=== PATIENT | male | born 1935 | race Hispanic/Latino ===

== ENCOUNTER → 2018-04-16 | Outpatient (CLI) | payer OTHER ==
[~2018-04-16] MED LIST: REGADENOSON 0.4 MG/5 ML PF SYG IVP ONE; REGADENOSON 0.4 MG/5 ML PF SYG IVP SCH
== END | disposition home or self-care (01) ==
LOC: SHCH 08:03
PROVIDERS: ATTEND Internal Medicine Cardiovascular Disease
DX: I99.8 Other disorder of circulatory system (principal)
CPT/HCPCS: 78452; 93017; 96374; A9500 ×2; J2785

== ENCOUNTER → 2018-04-19 | Outpatient (CLI) | payer OTHER | END | disposition home or self-care (01) | LOC: RAH 09:41 | PROVIDERS: ATTEND Family Medicine | DX: I51.7 Cardiomegaly (principal); I20.9 Angina pectoris, unspecified | CPT/HCPCS: 93306 ==

== ENCOUNTER → 2018-12-16 | Outpatient (CLI) | payer OTHER | END | disposition home or self-care (01) | LOC: RAH 10:46 | PROVIDERS: ATTEND Family Medicine | DX: N44.2 Benign cyst of testis (principal); K40.90 Unilateral inguinal hernia, without obstruction or gangrene, not specified as recurrent | CPT/HCPCS: 76870 ==

== ENCOUNTER → 2019-01-30 | Outpatient (CLI) | payer OTHER | END | disposition home or self-care (01) | LOC: OIH 16:21 | PROVIDERS: ATTEND Family Medicine | DX: Z01.818 Encounter for other preprocedural examination (principal); I10 Essential (primary) hypertension | CPT/HCPCS: 71046 ==

== ENCOUNTER → 2019-07-28 | Outpatient (CLI) | payer OTHER | END | disposition home or self-care (01) | LOC: RAH 07:23 | PROVIDERS: ATTEND Surgery | DX: K57.30 Diverticulosis of large intestine without perforation or abscess without bleeding (principal); Z98.890 Other specified postprocedural states | CPT/HCPCS: 74176 ==

== ENCOUNTER → 2020-02-25 | Outpatient (CLI) | payer OTHER | END | disposition home or self-care (01) | LOC: RAH 12:37 | PROVIDERS: ATTEND Family Medicine | DX: R06.02 Shortness of breath (principal) | CPT/HCPCS: 71046 ==

== ENCOUNTER 2020-05-04 06:25 | Day surgery (SDC) | payer OTHER ==
[~2020-05-04] VITALS: Ht 160 cm; Wt 109.8 kg
[~2020-05-04 06:25] MED LIST changes: -REGADENOSON 0.4 MG/5 ML PF SYG IVP ONE; -REGADENOSON 0.4 MG/5 ML PF SYG IVP SCH; +SODIUM CHLORIDE 0.9% 1000ML 1,000 ML IV ONE
[2020-05-04 06:30] VITALS: BP 170/74
[2020-05-04] MEDS ORDERED: ISOS60TA4 PO (07:56)
[2020-05-04] MEDS ORDERED: LEVO50CA4 PO (07:56)
[2020-05-04] MEDS ORDERED: ISOS30TA6 PO (07:56)
[2020-05-04] MEDS ORDERED: ATEN100T PO (07:56)
[2020-05-04] MEDS ORDERED: LISI40TA4 PO (07:56)
[2020-05-04] MEDS ORDERED: METF-446 PO (07:56)
[2020-05-04] MEDS ORDERED: HYDR25TA PO (07:56)
[2020-05-04] MEDS ORDERED: PRAV20TA4 PO (07:56)
[2020-05-04] MEDS ORDERED: PROPOFOL 10 MG/ML 20ML VIAL IV ONE (08:07)
[2020-05-04] MEDS ORDERED: PHENYLEPHRINE HCL 10 MG/ML 1ML VIAL IV ONE (08:20)
[2020-05-04 08:32] VITALS: BP 80/31
[2020-05-04 08:37] VITALS: BP 98/39
[2020-05-04 08:42] VITALS: BP 104/40
[2020-05-04 08:50] VITALS: BP 118/40
== END 2020-05-04 09:12 ==
LOC: DAH 06:25
PROVIDERS: ATTEND Internal Medicine Gastroenterology
DX: R19.5 Other fecal abnormalities (principal); Z86.010 Personal history of colon polyps; K63.5 Polyp of colon; K21.9 Gastro-esophageal reflux disease without esophagitis; D46.4 Refractory anemia, unspecified; I10 Essential (primary) hypertension; E78.5 Hyperlipidemia, unspecified; E78.49 Other hyperlipidemia; E66.01 Morbid (severe) obesity due to excess calories; Z68.41 Body mass index [BMI] 40.0-44.9, adult; Z79.84 Long term (current) use of oral hypoglycemic drugs; Z79.899 Other long term (current) drug therapy; Z20.828 Contact with and (suspected) exposure to other viral communicable diseases
CPT/HCPCS: 45385; 82948 ×2; 93005; A4215 ×2; A4221; A4222; A4223; A4606; A4620; A4657; A4663; C9803; J2370; J2704; J7030; U0003

== ENCOUNTER 2020-06-07 13:06 | Inpatient (IN) | payer OTHER ==
[~2020-06-07] VITALS: Ht 160 cm; Wt 102.7 kg
[~2020-06-07 13:06] MED LIST changes: +ATEN100T PO; +HYDR25TA PO; +ISOS30TA92 PO; +ISOS60TA77 PO; +LEVO50CA4 PO; +LISI40TA9 PO; +METF-446 PO; +PRAV20TA4 PO; -SODIUM CHLORIDE 0.9% 1000ML 1,000 ML IV ONE
[2020-06-07 13:33] LABS: BASOPHILS % (AUTO) 0.2 % (0.0-5.0); EOSINOPHILS % (AUTO) 0.2 % (0.0-8.0); HEMATOCRIT 33.9 % (42-54); LYMPHOCYTES % (AUTO) 21.4 % (21.0-51.0); MEAN CORPUSCULAR HEMOGLOBIN 31.6 pg (27.0-33.0); MEAN CORPUSCULAR HGB CONC 34.2 g/dL (32.0-36.0); MEAN CORPUSCULAR VOLUME 92.4 fL (79-99); MONOCYTES % (AUTO) 6.3 % (3.0-13.0); NEUTROPHILS % (AUTO) 69.7 % (40.0-77.0); PLATELET COUNT (AUTO) 241 K/uL (130-400); RED BLOOD CELL COUNT(AUTO) 3.67 MIL/uL (4.50-6.20); RED CELL DISTRIBUTION WIDTH 13.5 % (11.0-15.5); WHITE BLOOD COUNT (AUTO) 4.1 K/uL (4.8-10.8)
[2020-06-07 13:42] LABS: CREATININE 1.4 mg/dL (0.5-1.5); POTASSIUM 3.6 mmol/L (3.5-5.1)
[2020-06-07 13:43] LABS: INR 1.06 (0.85-1.15); PROTHROMBIN TIME 11.3 SEC (9.6-11.6)
[2020-06-07 13:45] LABS: PARTIAL THROMBOPLASTIN TIME 29.6 SEC (26.3-35.5)
[2020-06-07 13:47] LABS: ALBUMIN 3.3 g/dL (3.5-5.0); BILIRUBIN,TOTAL 0.3 mg/dL (0.2-1.0); TOTAL PROTEIN, SERUM 7.3 g/dL (6.0-8.3)
[2020-06-07] MEDS ORDERED: ONDANSETRON 4MG INJ ONE (14:04)
[2020-06-07] MEDS ORDERED: 0.9%NACL 1000ML 1,000 ML IV ONE ×3 (14:04→17:26)
[2020-06-07 14:31] LABS: APPEARANCE,URINE CLEAR (CLEAR); BILIRUBIN,URINE NEGATIVE (NEGATIVE); COLOR,URINE YELLOW (YELLOW); GLUCOSE, URINE (UA) NEGATIVE (NEGATIVE); KETONES,URINE NEGATIVE (NEGATIVE); LEUKOCYTE ESTERASE ,URINE NEGATIVE (NEGATIVE); NITRATE,URINE NEGATIVE (NEGATIVE); OCCULT BLOOD,URINE NEGATIVE (NEGATIVE); PROTEIN,URINE TRACE mg/dL (NEGATIVE); UROBILINOGEN,URINE 0.2 mg/dL (0.2-1.0)
[2020-06-07 14:39] LABS: BACTERIA,URINE Few /HPF (None Seen); MUCUS,URINE Rare LPF (None Seen); RBC,URINE 0-1 /HPF (0-1); SQUAMOUS EPITHELIAL CELL,UR Few /HPF (0-2)
[2020-06-07] MEDS ORDERED: CEFTRIAXONE 2GM VIAL ONE (14:40)
[2020-06-07] MEDS ORDERED: LIDOCAINE HCL-MPF 1% 2ML VIAL IV PRN (16:15)
[2020-06-07] MEDS ORDERED: DEXTROSE 50%-WATER 50 ML DISP.SYRIN IV PRN (16:15)
[2020-06-07] MEDS ORDERED: GLUCAGON 1MG KIT 1 MG ML IM PRN (16:15)
[2020-06-07] MEDS ORDERED: ACETAMINOPHEN 325 MG TAB PO PRN (16:15)
[2020-06-07] MEDS ORDERED: MAGNESIUM 2GM PREMIX 50ML 50 ML IV PRN (16:15)
[2020-06-07] MEDS ORDERED: POTASSIUM CHLORIDE 20MEQ/100ML 100 ML IV PRN (16:15)
[2020-06-07] MEDS ORDERED: POTASSIUM CHLORIDE 10% ELIXIR 20 MEQ/15 ML UDCUP PO PRN (16:15)
[2020-06-07] MEDS: 0.9%NACL 1000ML 1,000 ML IV SCH (16:15)
[2020-06-07] MEDS: ENOXAPARIN SODIUM 40 MG/0.4 ML SYRINGE SQ SCH (16:15)
[2020-06-07] MEDS: INSULIN HUMULIN R 100 UNIT/ML 3ML SQ SCH ×2 (16:30→21:00)
[2020-06-07] MEDS ORDERED: ENOXAPARIN SODIUM 40 MG/0.4 ML SYRINGE SQ ONE (17:25)
[2020-06-07] MEDS ORDERED: ONDANSETRON ODT 4MG TAB ONE (21:46)
[2020-06-08] MEDS: 0.9%NACL 1000ML 1,000 ML IV SCH ×2 (05:35→18:55)
[2020-06-08 06:59] LABS: HEMATOCRIT 29.8 % (42-54); MEAN CORPUSCULAR HEMOGLOBIN 31.5 pg (27.0-33.0); MEAN CORPUSCULAR HGB CONC 33.9 g/dL (32.0-36.0); MEAN CORPUSCULAR VOLUME 92.8 fL (79-99); PLATELET COUNT (AUTO) 209 K/uL (130-400); RED BLOOD CELL COUNT(AUTO) 3.21 MIL/uL (4.50-6.20); RED CELL DISTRIBUTION WIDTH 13.4 % (11.0-15.5)
[2020-06-08 07:19] LABS: CREATININE 1.2 mg/dL (0.5-1.5); MAGNESIUM 1.6 mg/dL (1.80-2.40); PHOSPHORUS 3.1 mg/dL (2.5-4.9); POTASSIUM 3.5 mmol/L (3.5-5.1)
[2020-06-08] MEDS: INSULIN HUMULIN R 100 UNIT/ML 3ML SQ SCH ×4 (07:30→21:00)
[2020-06-08 07:49] LABS: LYMPHOCYTES % (MANUAL) 29 % (22-44); MAN.DIFF COMMENT-IMPRESSION MANUAL DIFFERENTIAL; MONOCYTES % (MANUAL) 5 % (2-9); PLATELET MORPHOLOGY COMMENT ADEQUATE; SEGMENTED NEUTROPHILS % 66 % (40-70)
[2020-06-08] MEDS: PANTOPRAZOLE 40 MG TAB DR PO SCH (09:00)
[2020-06-08] MEDS: ENOXAPARIN SODIUM 40 MG/0.4 ML SYRINGE SQ SCH (09:00)
[2020-06-08] MEDS: CEFTRIAXONE 1G VIAL IVP SCH (09:00)
[2020-06-08] MEDS ORDERED: PANTOPRAZOLE 40 MG TAB DR ONE (09:24)
[2020-06-08] MEDS ORDERED: ENOXAPARIN SODIUM 40 MG/0.4 ML SYRINGE SQ ONE (09:24)
[2020-06-08] MEDS ORDERED: CEFTRIAXONE 1G VIAL ONE (09:24)
[2020-06-08] MEDS ORDERED: 0.9%NACL 50ML 50 ML IV ONE (09:24)
[2020-06-09 05:19] LABS: HEMATOCRIT 32.3 % (42-54); MEAN CORPUSCULAR HEMOGLOBIN 31.3 pg (27.0-33.0); MEAN CORPUSCULAR HGB CONC 34.4 g/dL (32.0-36.0); RED BLOOD CELL COUNT(AUTO) 3.55 MIL/uL (4.50-6.20); RED CELL DISTRIBUTION WIDTH 13.2 % (11.0-15.5); WHITE BLOOD COUNT (AUTO) 3.1 K/uL (4.8-10.8)
[2020-06-09 05:41] LABS: CREATININE 0.9 mg/dL (0.5-1.5); MAGNESIUM 1.4 mg/dL (1.80-2.40); PHOSPHORUS 2.5 mg/dL (2.5-4.9); POTASSIUM 3.2 mmol/L (3.5-5.1)
[2020-06-09] MEDS: INSULIN HUMULIN R 100 UNIT/ML 3ML SQ SCH ×4 (07:30→21:00)
[2020-06-09] MEDS: 0.9%NACL 1000ML 1,000 ML IV SCH (08:15)
[2020-06-09] MEDS: PANTOPRAZOLE 40 MG TAB DR PO SCH (09:00)
[2020-06-09] MEDS: CEFTRIAXONE 1G VIAL IVP SCH (09:00)
[2020-06-09] MEDS: ENOXAPARIN SODIUM 40 MG/0.4 ML SYRINGE SQ SCH (09:00)
[2020-06-09] MEDS ORDERED: CEFTRIAXONE 1G VIAL ONE (09:09)
[2020-06-09] MEDS ORDERED: ENOXAPARIN SODIUM 40 MG/0.4 ML SYRINGE SQ ONE (09:09)
[2020-06-09] MEDS ORDERED: PANTOPRAZOLE 40 MG TAB DR ONE (09:10)
[2020-06-09] MEDS ORDERED: ONDANSETRON 4MG INJ ONE (10:23)
[2020-06-09] MEDS ORDERED: KCL 20 MEQ ERTAB PO ONE (12:54)
[2020-06-09 15:30] VITALS: BP 175/81
[2020-06-09] MEDS: KCL 20 MEQ ERTAB PO PRN (17:07)
[2020-06-09 20:58] VITALS: BP 145/73
[2020-06-09] MEDS: ONDANSETRON 4MG TABLET PO PRN (21:17)
[2020-06-09 23:51] VITALS: BP 186/96
[2020-06-10 04:00] VITALS: BP 152/89
[2020-06-10] MEDS: INSULIN HUMULIN R 100 UNIT/ML 3ML SQ SCH ×4 (05:47→20:59)
[2020-06-10] MEDS: 0.9%NACL 1000ML 1,000 ML IV SCH ×2 (05:47→11:42)
[2020-06-10 08:05] LABS: BASOPHILS % (AUTO) 0.3 % (0.0-5.0); HEMATOCRIT 32.5 % (42-54); LYMPHOCYTES % (AUTO) 15.9 % (21.0-51.0); MEAN CORPUSCULAR HEMOGLOBIN 31.4 pg (27.0-33.0); MEAN CORPUSCULAR HGB CONC 33.8 g/dL (32.0-36.0); MEAN CORPUSCULAR VOLUME 92.9 fL (79-99); MONOCYTES % (AUTO) 8.7 % (3.0-13.0); NEUTROPHILS % (AUTO) 71.5 % (40.0-77.0); PLATELET COUNT (AUTO) 297 K/uL (130-400); RED CELL DISTRIBUTION WIDTH 13.4 % (11.0-15.5); WHITE BLOOD COUNT (AUTO) 3.3 K/uL (4.8-10.8)
[2020-06-10 08:16] LABS: ALBUMIN 2.8 g/dL (3.5-5.0); BILIRUBIN,TOTAL 0.3 mg/dL (0.2-1.0); POTASSIUM 3.9 mmol/L (3.5-5.1); TOTAL PROTEIN, SERUM 6.6 g/dL (6.0-8.3)
[2020-06-10 08:19] VITALS: BP 158/82
[2020-06-10] MEDS: PANTOPRAZOLE 40 MG TAB DR PO SCH (08:49)
[2020-06-10] MEDS: CEFTRIAXONE 1G VIAL IVP SCH (08:49)
[2020-06-10] MEDS: ENOXAPARIN SODIUM 40 MG/0.4 ML SYRINGE SQ SCH (08:50)
[2020-06-10 12:00] VITALS: BP 164/80
[2020-06-10 16:00] VITALS: BP 154/83
[2020-06-10 19:00] VITALS: BP 143/54
[2020-06-10] MEDS: ONDANSETRON 4MG TABLET PO PRN (21:00)
[2020-06-11] VITALS: BP 164/84
[2020-06-11] MEDS: 0.9%NACL 1000ML 1,000 ML IV SCH ×2 (00:15→08:39)
[2020-06-11 04:00] VITALS: BP 164/78
[2020-06-11 05:24] LABS: BASOPHILS % (AUTO) 0.3 % (0.0-5.0); EOSINOPHILS % (AUTO) 0.3 % (0.0-8.0); HEMATOCRIT 31.3 % (42-54); LYMPHOCYTES % (AUTO) 16.9 % (21.0-51.0); MEAN CORPUSCULAR HEMOGLOBIN 30.6 pg (27.0-33.0); MEAN CORPUSCULAR HGB CONC 33.5 g/dL (32.0-36.0); MEAN CORPUSCULAR VOLUME 91.3 fL (79-99); MONOCYTES % (AUTO) 7.7 % (3.0-13.0); NEUTROPHILS % (AUTO) 71.1 % (40.0-77.0); PLATELET COUNT (AUTO) 332 K/uL (130-400); RED BLOOD CELL COUNT(AUTO) 3.43 MIL/uL (4.50-6.20); RED CELL DISTRIBUTION WIDTH 13.2 % (11.0-15.5); WHITE BLOOD COUNT (AUTO) 3.8 K/uL (4.8-10.8)
[2020-06-11 05:29] LABS: CREATININE 0.9 mg/dL (0.5-1.5); POTASSIUM 3.6 mmol/L (3.5-5.1)
[2020-06-11] MEDS: INSULIN HUMULIN R 100 UNIT/ML 3ML SQ SCH ×3 (06:32→16:30)
[2020-06-11] MEDS: CEFTRIAXONE 1G VIAL IVP SCH (08:38)
[2020-06-11] MEDS: ENOXAPARIN SODIUM 40 MG/0.4 ML SYRINGE SQ SCH (08:39)
[2020-06-11] MEDS: PANTOPRAZOLE 40 MG TAB DR PO SCH (08:39)
[2020-06-11] MEDS: KCL 20 MEQ ERTAB PO PRN (08:47)
[2020-06-11 09:43] VITALS: BP 154/77
[2020-06-11 12:58] VITALS: BP 156/73
[2020-06-11 18:44] VITALS: BP 159/81
[2020-06-12 04:58] VITALS: BP 145/65
== END 2020-06-11 20:50 | disposition home or self-care (01) | DRG 871 ==
LOC: EDH 13:06 → EDHIP 16:04 → 2AH 06-09 15:35
PROVIDERS: ADMIT Internal Medicine; ATTEND Internal Medicine
DX: A41.9 Sepsis, unspecified organism (principal); U07.1 COVID-19; Z68.41 Body mass index [BMI] 40.0-44.9, adult; E86.0 Dehydration; R00.1 Bradycardia, unspecified; E11.9 Type 2 diabetes mellitus without complications; E66.01 Morbid (severe) obesity due to excess calories; E78.5 Hyperlipidemia, unspecified; I10 Essential (primary) hypertension; R53.81 Other malaise; Z79.899 Other long term (current) drug therapy; Z79.84 Long term (current) use of oral hypoglycemic drugs; Z90.49 Acquired absence of other specified parts of digestive tract
CPT/HCPCS: 36415; 70450; 71045; 80048; 80053; 81001; 82550; 82948; 83605; 83735; 83880; 84100; 84145; 84484; 85025; 85027; 85378; 85610; 85730; 86900; 86901; 87040; 87426; 87804; 93005; 93306; 93356; 94760; G0378; J0696; J1650; J2405; J7030; Q0162

== ENCOUNTER 2022-06-20 20:06 | Observation (INO) | payer OTHER ==
[~2022-06-20] VITALS: Ht 160 cm; Wt 104.9 kg
[~2022-06-20 20:06] MED LIST changes: -HYDR25TA PO; -ISOS30TA92 PO; +MECL-226 PO
[2022-06-21 00:39] LABS: LYMPHOCYTES % (AUTO) 59.7 % (21.0-51.0); MEAN CORPUSCULAR HEMOGLOBIN 33.9 pg (27.0-33.0); MEAN CORPUSCULAR HGB CONC 33.9 g/dL (32.0-36.0); MONOCYTES % (AUTO) 3.6 % (3.0-13.0); NEUTROPHILS % (AUTO) 35.4 % (40.0-77.0); PLATELET COUNT (AUTO) 318 K/uL (130-400); RED CELL DISTRIBUTION WIDTH 15.4 % (11.0-15.5)
[2022-06-21 00:41] LABS: CREATININE 1.5 mg/dL (0.5-1.5); POTASSIUM 4.3 mmol/L (3.5-5.1)
[2022-06-21 00:46] LABS: ALBUMIN 3.5 g/dL (3.5-5.0); TOTAL PROTEIN, SERUM 7.1 g/dL (6.0-8.3)
[2022-06-21 01:52] LABS: LYMPHOCYTES % (MANUAL) 61 % (22-44); MAN.DIFF COMMENT-IMPRESSION MANUAL DIFFERENTIAL; MONOCYTES % (MANUAL) 3 % (2-9); SEGMENTED NEUTROPHILS % 36 % (40-70)
[2022-06-21 01:53] LABS: PLATELET MORPHOLOGY COMMENT LARGE PLTS PRESENT
[2022-06-21] MEDS ORDERED: ACETAMINOPHEN 325 MG TAB PO PRN (02:30)
[2022-06-21] MEDS ORDERED: IPRATROPIUM 0.5 MG/2.5 ML INH IH PRN (02:30)
[2022-06-21] MEDS ORDERED: ALBUTEROL 0.083% 2.5 MG/3 ML INH IH PRN (02:30)
[2022-06-21] MEDS ORDERED: HYDRALAZINE 20MG/ML VIAL IV PRN (02:30)
[2022-06-21] MEDS ORDERED: ONDANSETRON 4MG INJ IVP PRN (02:30)
[2022-06-21] MEDS ORDERED: LACTULOSE 20 GM/30 ML UDCUP PO PRN (02:30)
[2022-06-21 02:49] LABS: ABG BASE EXCESS -1.8 mmol/L (-2.0-3.0); ABG HCO3 23.2 mmol/L (21.0-28.0); ABG PCO2 40 mmHg (35-48)
[2022-06-21 03:50] LABS: % IRON SATURATION 36.2 % (30-44)
[2022-06-21 07:28] LABS: APPEARANCE,URINE CLEAR (CLEAR); BILIRUBIN,URINE NEGATIVE (NEGATIVE); COLOR,URINE LIGHT-YELLOW (YELLOW); GLUCOSE, URINE (UA) NEGATIVE (NEGATIVE); KETONES,URINE NEGATIVE (NEGATIVE); LEUKOCYTE ESTERASE ,URINE NEGATIVE Leu/uL (NEGATIVE); NITRATE,URINE NEGATIVE (NEGATIVE); OCCULT BLOOD,URINE NEGATIVE (NEGATIVE); PROTEIN,URINE NEGATIVE (NEGATIVE); UROBILINOGEN,URINE 0.2 mg/dL (0.2-1.0)
[2022-06-21 07:51] LABS: HEMATOCRIT 25.7 % (42-54)
[2022-06-21] MEDS: DOCUSATE SODIUM 100 MG CAP PO SCH ×2 (08:16→20:06)
[2022-06-21] MEDS ORDERED: FAMOTIDINE 20MG VIAL IV SCH (09:00)
[2022-06-21] MEDS ORDERED: ENOXAPARIN SODIUM 40 MG/0.4 ML SYRINGE SQ SCH (09:00)
[2022-06-21] MEDS ORDERED: HYDR25TA PO (10:07)
[2022-06-21] MEDS ORDERED: ASPI-1197 PO (10:07)
[2022-06-21 16:00] VITALS: BP 157/64
[2022-06-21] MEDS: INSULIN HUMULIN R 100 UNIT/ML 3ML SQ SCH ×2 (16:30→21:14)
[2022-06-21 20:00] VITALS: BP 152/54
[2022-06-22] VITALS: BP 120/45
[2022-06-22 04:00] VITALS: BP 139/55
[2022-06-22 04:26] LABS: HEMATOCRIT 25.4 % (42-54); MEAN CORPUSCULAR HEMOGLOBIN 33.5 pg (27.0-33.0); MEAN CORPUSCULAR HGB CONC 33.5 g/dL (32.0-36.0); PLATELET COUNT (AUTO) 293 K/uL (130-400); RED BLOOD CELL COUNT(AUTO) 2.54 MIL/uL (4.50-6.20); RED CELL DISTRIBUTION WIDTH 15.2 % (11.0-15.5); WHITE BLOOD COUNT (AUTO) 2.6 K/uL (4.8-10.8)
[2022-06-22 04:40] LABS: CREATININE 1.4 mg/dL (0.5-1.5); MAGNESIUM 1.7 mg/dL (1.80-2.40); PHOSPHORUS 3.5 mg/dL (2.5-4.9); POTASSIUM 3.8 mmol/L (3.5-5.1)
[2022-06-22 05:12] LABS: EOSINOPHILS % (MANUAL) 2 % (1-6); LYMPHOCYTES % (MANUAL) 72 % (22-44); MONOCYTES % (MANUAL) 5 % (2-9); SEGMENTED NEUTROPHILS % 21 % (40-70)
[2022-06-22 05:13] LABS: MAN.DIFF COMMENT-IMPRESSION MANUAL DIFFERENTIAL
[2022-06-22] MEDS: INSULIN HUMULIN R 100 UNIT/ML 3ML SQ SCH (06:21)
[2022-06-22] MEDS ORDERED: MAGNESIUM 2GM PREMIX 50ML 50 ML IV SCH (06:30)
[2022-06-22 07:49] VITALS: BP 148/49
[2022-06-22 11:48] VITALS: BP 155/60
== END 2022-06-22 13:05 | disposition home or self-care (01) ==
LOC: EDH 20:06 → EDHIP 06-21 02:19 → 4AH 06-21 15:11
PROVIDERS: ADMIT Internal Medicine Pulmonary Disease; ATTEND Internal Medicine Pulmonary Disease
DX: I13.0 Hypertensive heart and chronic kidney disease with heart failure and stage 1 through stage 4 chronic kidney disease, or unspecified chronic kidney disease (principal); E11.22 Type 2 diabetes mellitus with diabetic chronic kidney disease; I50.9 Heart failure, unspecified; N18.30 Chronic kidney disease, stage 3 unspecified; D63.1 Anemia in chronic kidney disease; E78.5 Hyperlipidemia, unspecified; E03.9 Hypothyroidism, unspecified; G47.33 Obstructive sleep apnea (adult) (pediatric); D72.819 Decreased white blood cell count, unspecified; E66.01 Morbid (severe) obesity due to excess calories; I24.9 Acute ischemic heart disease, unspecified; E78.00 Pure hypercholesterolemia, unspecified; Z68.41 Body mass index [BMI] 40.0-44.9, adult; Z91.199 Patient's noncompliance with other medical treatment and regimen due to unspecified reason; Z79.899 Other long term (current) drug therapy
CPT/HCPCS: 71045; 96374; 96372; 99285; 83540; 83550; 82435; 82947; 84484; 84132; 84295; 80053; 82803; 83880; 82728; 85025; 85378 ×2; 85014; 85018 ×2; 82948 ×4; 83605; 81003; 36415 ×2; 93306; 93356; 97161; 93005; 36600; 94664; 84145; 83735; 84100; 80048; 85027; J1815; G0378 ×34; J3490; J1650

== ENCOUNTER 2022-09-09 17:56 | Observation (INO) | payer OTHER ==
[~2022-09-09] VITALS: Ht 160 cm; Wt 105.7 kg
[~2022-09-09 17:56] MED LIST changes: +ASPI-1197 PO; +HYDR25TA PO; -LEVO50CA4 PO
[2022-09-09 18:21] LABS: EOSINOPHILS % (AUTO) 0.5 % (0.0-8.0); LYMPHOCYTES % (AUTO) 53.8 % (21.0-51.0); MEAN CORPUSCULAR HEMOGLOBIN 35.6 pg (27.0-33.0); MEAN CORPUSCULAR HGB CONC 33.2 g/dL (32.0-36.0); MEAN CORPUSCULAR VOLUME 107.3 fL (79-99); NEUTROPHILS % (AUTO) 31.2 % (40.0-77.0); NUCLEATED RED BLOOD CELLS 1.1 % (0.0-0.19); PLATELET COUNT (AUTO) 313 K/uL (130-400); RED BLOOD CELL COUNT(AUTO) 1.91 MIL/uL (4.50-6.20); RED CELL DISTRIBUTION WIDTH 15.9 % (11.0-15.5); WHITE BLOOD COUNT (AUTO) 1.9 K/uL (4.8-10.8)
[2022-09-09 18:31] LABS: POTASSIUM 4.7 mmol/L (3.5-5.1)
[2022-09-09 18:36] LABS: ALBUMIN 3.1 g/dL (3.5-5.0); TOTAL PROTEIN, SERUM 6.4 g/dL (6.0-8.3)
[2022-09-09 18:44] LABS: HEMATOCRIT 20.5 % (42-54)
[2022-09-09 18:47] LABS: B-TYPE NATRIURETIC PEPTIDE 194 pg/mL (0-100)
[2022-09-09 19:08] LABS: APPEARANCE,URINE CLEAR (CLEAR); BILIRUBIN,URINE NEGATIVE (NEGATIVE); COLOR,URINE YELLOW (YELLOW); GLUCOSE, URINE (UA) NEGATIVE (NEGATIVE); KETONES,URINE NEGATIVE (NEGATIVE); LEUKOCYTE ESTERASE ,URINE NEGATIVE Leu/uL (NEGATIVE); NITRATE,URINE NEGATIVE (NEGATIVE); OCCULT BLOOD,URINE NEGATIVE (NEGATIVE); PROTEIN,URINE 10 mg/dL (NEGATIVE); UROBILINOGEN,URINE 0.2 mg/dL (0.2-1.0)
[2022-09-09 19:15] LABS: MUCUS,URINE RARE LPF (None Seen); OTHER CASTS, URINE 1 /LPF (None Seen); RBC,URINE 0-1 /HPF (0-1); SQUAMOUS EPITHELIAL CELL,UR RARE /HPF (0-2); WBC,URINE 0-1 /HPF (0-1)
[2022-09-09] MEDS ORDERED: Vitamin B Complex/Vit C/Folic Acid PO ONE (19:30)
[2022-09-09] MEDS ORDERED: THIAMINE HCL 100 MG/ML 2ML VIAL IVP ONE (19:30)
[2022-09-09] MEDS ORDERED: ZOSYN 3.375GM+NS 50ML 50 ML IVPB ONE (21:49)
[2022-09-09] MEDS ORDERED: ZOSYN 3.375GM +NS 50ML IVPB ONE (22:00)
[2022-09-09] MEDS ORDERED: 0.9%NACL 1000ML 1,000 ML IV ONE (22:00)
[2022-09-09] MEDS ORDERED: ALBUTEROL 0.083% 2.5 MG/3 ML INH IH PRN (22:30)
[2022-09-09] MEDS ORDERED: ONDANSETRON 4MG INJ IVP PRN (22:30)
[2022-09-09] MEDS ORDERED: HYDRALAZINE 20MG/ML VIAL IV PRN (22:30)
[2022-09-09] MEDS: PANTOPRAZOLE 40 MG/VIAL IVP SCH (22:41)
[2022-09-09] MEDS: LACTATED RINGERS 1000ML 1,000 ML IV SCH (22:41)
[2022-09-09] MEDS: METRONIDAZOLE 500MG/100ML BAG 100 ML IVPB SCH (22:41)
[2022-09-09 22:44] LABS: PROTHROMBIN TIME 10.9 SEC (9.6-11.6)
[2022-09-09 22:46] LABS: PARTIAL THROMBOPLASTIN TIME 28.1 SEC (26.3-35.5)
[2022-09-09 23:04] LABS: CREATINE KINASE, TOTAL 93 U/L (21-232); FERRITIN 369 ng/mL (30-400); LACTATE DEHYDROGENASE 414 U/L (81-234)
[2022-09-09 23:19] LABS: CHLORIDE,URINE RANDOM 57 mmol/L (110-250); POTASSIUM,URINE RANDOM 40 mmol/L (25-125); SODIUM,URINE RANDOM 30 mmol/l (40-220)
[2022-09-10 00:20] VITALS: BP 145/95
[2022-09-10] MEDS ORDERED: [UNRECOGNIZED DRUG - OTHER] PO (01:16)
[2022-09-10] MEDS ORDERED: folic acid PO (01:16)
[2022-09-10] MEDS ORDERED: VITC PO (01:16)
[2022-09-10 04:09] LABS: EOSINOPHILS % (AUTO) 0.5 % (0.0-8.0); HEMATOCRIT 23.1 % (42-54); LYMPHOCYTES % (AUTO) 72.4 % (21.0-51.0); MEAN CORPUSCULAR HEMOGLOBIN 34.1 pg (27.0-33.0); MEAN CORPUSCULAR HGB CONC 33.3 g/dL (32.0-36.0); MEAN CORPUSCULAR VOLUME 102.2 fL (79-99); MONOCYTES % (AUTO) 10.3 % (3.0-13.0); NEUTROPHILS % (AUTO) 16.3 % (40.0-77.0); PLATELET COUNT (AUTO) 267 K/uL (130-400); RED BLOOD CELL COUNT(AUTO) 2.26 MIL/uL (4.50-6.20); RED CELL DISTRIBUTION WIDTH 19.1 % (11.0-15.5); WHITE BLOOD COUNT (AUTO) 1.9 K/uL (4.8-10.8)
[2022-09-10 04:17] VITALS: BP 118/53
[2022-09-10 04:27] LABS: % IRON SATURATION 102.9 % (30-44)
[2022-09-10 04:37] LABS: ALBUMIN 2.9 g/dL (3.5-5.0); CREATININE 1.6 mg/dL (0.5-1.5); THYROID STIMULATING HORMONE 5.2 uIU/mL (0.36-3.74); TOTAL PROTEIN, SERUM 6.6 g/dL (6.0-8.3)
[2022-09-10] MEDS ORDERED: DEXTROSE 50%-WATER 50 ML DISP.SYRIN IV PRN (05:30)
[2022-09-10] MEDS ORDERED: GLUCAGON 1MG KIT 1 MG ML IM PRN (05:30)
[2022-09-10] MEDS: INSULIN HUMULIN R 100 UNIT/ML 3ML SQ SCH ×3 (05:37→18:00)
[2022-09-10] MEDS: METRONIDAZOLE 500MG/100ML BAG 100 ML IVPB SCH ×3 (06:03→20:55)
[2022-09-10] MEDS: LACTATED RINGERS 1000ML 1,000 ML IV SCH (06:04)
[2022-09-10 08:07] VITALS: BP 126/47
[2022-09-10] MEDS: ATENOLOL 50 MG TABLET PO SCH (09:00)
[2022-09-10] MEDS: ISOSORBIDE MONO 60MG SR TAB PO SCH (09:00)
[2022-09-10] MEDS: MECLIZINE HCL 12.5 MG TABLET PO SCH ×3 (09:00→20:42)
[2022-09-10] MEDS: CEFTRIAXONE 1G VIAL IVP SCH (10:13)
[2022-09-10] MEDS: PANTOPRAZOLE 40 MG/VIAL IVP SCH ×2 (10:13→20:42)
[2022-09-10 11:48] VITALS: BP 133/52
[2022-09-10 12:21] LABS: HEMATOCRIT 24.5 % (42-54)
[2022-09-10 17:05] VITALS: BP 115/53
[2022-09-10 19:32] LABS: HEMATOCRIT 25.3 % (42-54)
[2022-09-10 20:00] VITALS: BP 122/46
[2022-09-10] MEDS ORDERED: SIMVASTATIN 20 MG TABLET PO SCH (21:00)
[2022-09-11] VITALS: BP 129/48
[2022-09-11 04:00] VITALS: BP 157/59
[2022-09-11] MEDS: LACTATED RINGERS 1000ML 1,000 ML IV SCH (04:30)
[2022-09-11] MEDS: METRONIDAZOLE 500MG/100ML BAG 100 ML IVPB SCH ×2 (05:04→15:41)
[2022-09-11 05:18] LABS: BASOPHILS % (AUTO) 0.8 % (0.0-5.0); EOSINOPHILS % (AUTO) 0.8 % (0.0-8.0); HEMATOCRIT 22.8 % (42-54); LYMPHOCYTES % (AUTO) 71.2 % (21.0-51.0); MEAN CORPUSCULAR HEMOGLOBIN 33.8 pg (27.0-33.0); MEAN CORPUSCULAR HGB CONC 32.9 g/dL (32.0-36.0); MEAN CORPUSCULAR VOLUME 102.7 fL (79-99); MONOCYTES % (AUTO) 12.9 % (3.0-13.0); NEUTROPHILS % (AUTO) 13.5 % (40.0-77.0); PLATELET COUNT (AUTO) 258 K/uL (130-400); RED BLOOD CELL COUNT(AUTO) 2.22 MIL/uL (4.50-6.20); RED CELL DISTRIBUTION WIDTH 18.7 % (11.0-15.5); WHITE BLOOD COUNT (AUTO) 1.3 K/uL (4.8-10.8)
[2022-09-11 05:23] LABS: CREATININE 1.3 mg/dL (0.5-1.5)
[2022-09-11] MEDS: INSULIN HUMULIN R 100 UNIT/ML 3ML SQ SCH ×3 (06:00→18:00)
[2022-09-11 07:15] VITALS: BP 123/52
[2022-09-11] MEDS: MECLIZINE HCL 12.5 MG TABLET PO SCH ×2 (09:42→15:41)
[2022-09-11] MEDS: PANTOPRAZOLE 40 MG/VIAL IVP SCH (09:42)
[2022-09-11] MEDS: CEFTRIAXONE 1G VIAL IVP SCH (09:42)
[2022-09-11] MEDS: ISOSORBIDE MONO 60MG SR TAB PO SCH (09:43)
[2022-09-11] MEDS: ATENOLOL 50 MG TABLET PO SCH (09:59)
[2022-09-11 10:35] VITALS: BP 117/51
[2022-09-11 15:25] VITALS: BP 117/54
[2022-09-11] MEDS ORDERED: METR-172 PO (15:25)
[2022-09-11] MEDS ORDERED: CIPR500T10 PO (15:25)
== END 2022-09-11 18:40 | disposition home or self-care (01) ==
LOC: EDH 17:56 → EDHIP 22:01 → 4AH 23:46
PROVIDERS: ADMIT Internal Medicine Critical Care Medicine; ATTEND Internal Medicine Critical Care Medicine
DX: A41.9 Sepsis, unspecified organism (principal); Z20.822 Contact with and (suspected) exposure to COVID-19; D53.9 Nutritional anemia, unspecified; K57.92 Diverticulitis of intestine, part unspecified, without perforation or abscess without bleeding; N17.9 Acute kidney failure, unspecified; E87.1 Hypo-osmolality and hyponatremia; D72.819 Decreased white blood cell count, unspecified; I12.9 Hypertensive chronic kidney disease with stage 1 through stage 4 chronic kidney disease, or unspecified chronic kidney disease; N18.30 Chronic kidney disease, stage 3 unspecified; E11.22 Type 2 diabetes mellitus with diabetic chronic kidney disease; E78.00 Pure hypercholesterolemia, unspecified; E03.9 Hypothyroidism, unspecified; J96.90 Respiratory failure, unspecified, unspecified whether with hypoxia or hypercapnia; K42.9 Umbilical hernia without obstruction or gangrene; K57.32 Diverticulitis of large intestine without perforation or abscess without bleeding; Z79.84 Long term (current) use of oral hypoglycemic drugs; Z90.49 Acquired absence of other specified parts of digestive tract; Z79.899 Other long term (current) drug therapy; Z98.890 Other specified postprocedural states
CPT/HCPCS: 96365; 96366 ×3; 96375 ×2; 96368; 36430; 82550; 80051; 83615; 84484 ×2; 80053 ×2; 83880; 82728; 85025 ×3; 85378; 85610; 85730; 86850; 86900; 86901; 86923; 87040 ×2; 87077; 87088; 87186; 87804 ×2; 83605; 83930; 83935; 84425; 82746; 81001; 36415 ×3; 87635; 71045; 70450; 74176; 99291; 93005; 94664; 96376 ×2; 84443; 83540; 83550; 85014 ×3; 85018 ×3; 82948 ×8; 78582; 76770; 93970; 84145; 94760 ×2; 80048; P9016; C9803; J3411; J2543; C9113 ×4; J3490 ×6; G0378 ×38; J0696 ×3; A9540; A9558; J1815; 85007

== ENCOUNTER → 2023-02-26 | Outpatient (CLI) | payer OTHER ==
[~2023-02-26] MED LIST changes: +AMLO-258 PO; +AMOX-426 PO; -ASPI-1197 PO; +ASPI-1443 PO; +FOLI1 PO; +FOLI20CA PO; +HYDR500C2 PO; -MECL-226 PO; +MEGE400O5 PO; +ONDA-105 PO; +PANT40TA54 PO; +SERT-439 PO; +SODI650T PO; +TBO-300S SQ; +THIA100T91 PO; +VITA1CAP PO
== END | disposition home or self-care (01) ==
LOC: RAH 12:49
PROVIDERS: ATTEND Family Medicine
DX: R13.10 Dysphagia, unspecified (principal); K21.9 Gastro-esophageal reflux disease without esophagitis
CPT/HCPCS: 74230; 92611